=== PATIENT | female | born 1940 | race Two or more races ===

== ENCOUNTER 2024-10-27 11:40 | Inpatient (IN) | payer OTHER ==
[2024-10-27] MEDS: LACTATED RINGERS SOLUTION 1000 ML INFUS.BAG IV ONE (12:39)
[2024-10-27 12:43] LABS: ABSOLUTE IMMATURE GRANULOCYTES 0.01 x10^3/uL (0.0-0.031); BASOPHILS # 0.07 x10^3/uL (0.01-0.08); EOSINOPHIL % 1.7 % (0.7-5.8); EOSINOPHILS # 0.09 x10^3/uL (0.04-0.36); MCHC 32.7 g/dl (32.2-35.5); MEAN CELL VOLUME 93.7 fl (79.4-94.8); MEAN PLT VOLUME 10.6 fl (9.4-12.3); MONOCYTE # 0.47 x10^3/uL (0.24-0.86); MONOCYTE % 8.7 % (4.7-12.5); RDW 12.1 % (12.5-17.0)
[2024-10-27 13:21] LABS: GLUCOSE,RANDOM 88.0 mg/dL (74-106); TOT PROT 6.7 g/dl (6.4-8.2)
[2024-10-27 13:23] LABS: CO2 27.0 mmol/L (21-32)
[2024-10-27 13:24] LABS: ALK PHOS 84.0 U/L (40-150)
[2024-10-27 13:26] LABS: EPI CELLS 2 /uL (0-25.1); HYALINE CASTS 0 /uL (0-3.1); URINE APPEARANCE CLEAR; URINE BACTERIA 1871 /uL (0-1359); URINE BILIRUBIN NEGATIVE (NEGATIVE); URINE COLOR YELLOW; URINE GLUCOSE (UA) NEGATIVE (NEGATIVE); URINE KETONE NEGATIVE (NEGATIVE); URINE LEUK ESTERASE 1+ (NEGATIVE); URINE NITRITE POSITIVE (NEGATIVE); URINE PROTEIN NEGATIVE (NEGATIVE); URINE RBC 7 /uL (0-23.9); URINE UROBILINOGEN 0.2 mg/dL (0.2-1.0); URINE WBC 13 /uL (0-25.8)
[2024-10-27 13:27] LABS: CREATININE 0.75 mg/dL (0.55-1.3); SGOT/AST 24.0 U/L (5-34); SGPT/ALT 10.0 U/L (0-55)
[2024-10-27] MEDS ORDERED: CEFTRIAXONE 1 GM/50 ML BAG ONE (14:09)
[2024-10-27] MEDS ORDERED: HALOPERIDOL LACTATE 5 MG/ML ONE (15:45)
[2024-10-27] MEDS: MIDAZOLAM HCL 2 MG/2 ML SINGLE DOSE VIAL IVPUSH ONE (15:59)
[2024-10-27] MEDS: HALOPERIDOL LACTATE 5 MG/ML IM ONE (15:59)
[2024-10-28] MEDS: ACETAMINOPHEN 1000 MG/100 ML BAG IVPB PRN (05:27)
[2024-10-28] MEDS: LEVOTHYROXINE NA 25 MCG TABLET (FP) PO SCH (06:30)
[2024-10-28] MEDS: amLODIPine BESYLATE 10 MG TABLET (FP) PO SCH (09:26)
[2024-10-28] MEDS: FAMOTIDINE 20 MG TABLET PO SCH (09:26)
[2024-10-28] MEDS: ASPIRIN 81 MG CHEWABLE TABLETS PO SCH (09:26)
[2024-10-28] MEDS: ENOXAPARIN NA (PORCINE) 40 MG/0.4 ML DISP.SYRIN SQ SCH (09:26)
[2024-10-28] MEDS: CEFTRIAXONE 1 GM in DEXTROSE 5%-WATER - 50 ML IVPB SCH (09:26)
[2024-10-28 09:53] LABS: ABSOLUTE IMMATURE GRANULOCYTES 0.02 x10^3/uL (0.0-0.031); BASOPHILS # 0.08 x10^3/uL (0.01-0.08); EOSINOPHIL % 1.2 % (0.7-5.8); EOSINOPHILS # 0.08 x10^3/uL (0.04-0.36); MCHC 33.2 g/dl (32.2-35.5); MEAN CELL VOLUME 93.2 fl (79.4-94.8); MEAN PLT VOLUME 10.8 fl (9.4-12.3); MONOCYTE # 0.47 x10^3/uL (0.24-0.86); MONOCYTE % 7.3 % (4.7-12.5); RDW 12.3 % (12.5-17.0)
[2024-10-28 10:52] LABS: GLUCOSE,RANDOM 103.0 mg/dL (74-106); TOT PROT 7.6 g/dl (6.4-8.2)
[2024-10-28 10:53] LABS: CO2 27.0 mmol/L (21-32)
[2024-10-28 10:55] LABS: ALK PHOS 105.0 U/L (40-150)
[2024-10-28 10:57] LABS: SGOT/AST 25.0 U/L (5-34); SGPT/ALT 9.0 U/L (0-55)
[2024-10-28 10:58] LABS: CREATININE 0.85 mg/dL (0.55-1.3)
[2024-10-28 16:22] LABS: ERYTHROCYTE SEDIMENTATION RATE 34 mm/hr (0-30)
[2024-10-28] MEDS: TAMSULOSIN HCL 0.4 MG CAP PO SCH (18:57)
[2024-10-29 06:54] LABS: ABSOLUTE IMMATURE GRANULOCYTES 0.01 x10^3/uL (0.0-0.031); BASOPHILS # 0.08 x10^3/uL (0.01-0.08); EOSINOPHIL % 2.6 % (0.7-5.8); EOSINOPHILS # 0.13 x10^3/uL (0.04-0.36); MCHC 33.0 g/dl (32.2-35.5); MEAN CELL VOLUME 92.5 fl (79.4-94.8); MEAN PLT VOLUME 10.6 fl (9.4-12.3); MONOCYTE # 0.54 x10^3/uL (0.24-0.86); MONOCYTE % 10.8 % (4.7-12.5); RDW 12.0 % (12.5-17.0)
[2024-10-29 07:55] LABS: GLUCOSE,RANDOM 87.0 mg/dL (74-106); TOT PROT 6.4 g/dl (6.4-8.2)
[2024-10-29 07:57] LABS: CO2 28.0 mmol/L (21-32)
[2024-10-29 07:58] LABS: ALK PHOS 87.0 U/L (40-150)
[2024-10-29 08:01] LABS: CREATININE 0.96 mg/dL (0.55-1.3); SGOT/AST 27.0 U/L (5-34); SGPT/ALT 10.0 U/L (0-55)
[2024-10-29] MEDS ORDERED: ACETAMINOPHEN 1000 MG/100 ML BAG IVPB SCH (09:15)
[2024-10-29] MEDS ORDERED: ACETAMINOPHEN 325 MG TABLET (FP) PO SCH (12:00)
[2024-10-29 15:01] VITALS: BMI 22.9
[2024-10-29] MEDS: ACETAMINOPHEN 325 MG TABLET (FP) PO SCH (16:40)
[2024-10-30 06:54] VITALS: RESP 18
[2024-10-30 13:12] LABS: ABSOLUTE IMMATURE GRANULOCYTES 0.02 x10^3/uL (0.0-0.031); BASOPHILS # 0.07 x10^3/uL (0.01-0.08); EOSINOPHIL % 1.3 % (0.7-5.8); EOSINOPHILS # 0.09 x10^3/uL (0.04-0.36); MCHC 33.4 g/dl (32.2-35.5); MEAN CELL VOLUME 91.7 fl (79.4-94.8); MEAN PLT VOLUME 10.9 fl (9.4-12.3); MONOCYTE # 0.52 x10^3/uL (0.24-0.86); MONOCYTE % 7.6 % (4.7-12.5); RDW 11.9 % (12.5-17.0)
[2024-10-30] MEDS ORDERED: ONDANSETRON 4 MG/2 ML VIAL IVPUSH PRN (13:25)
[2024-10-30] MEDS: SODIUM CHLORIDE 1,000 ML IV SCH (13:30)
[2024-10-30 13:34] LABS: GLUCOSE,RANDOM 104.0 mg/dL (74-106); TOT PROT 6.8 g/dl (6.4-8.2)
[2024-10-30 13:35] LABS: CO2 27.0 mmol/L (21-32)
[2024-10-30 13:37] LABS: ALK PHOS 94.0 U/L (40-150)
[2024-10-30 13:39] LABS: CREATININE 0.89 mg/dL (0.55-1.3); SGOT/AST 44.0 U/L (5-34); SGPT/ALT 16.0 U/L (0-55)
[2024-10-31] MEDS: AMOX TR/POT CLAV 500MG/125MG TABLETS (FP) PO SCH (17:22)
[2024-11-01 07:02] VITALS: BP 134/67; PULSE 74; TEMP 97.9
[2024-11-01] MEDS: amLODIPine BESYLATE 5 MG TABLET (FP) PO SCH (09:13)
== END 2024-11-01 11:17 | DRG 392 ==
LOC: JER 11:40 → JERBED 19:25 → J8W 20:13
PROVIDERS: ADMIT Internal Medicine; ATTEND Internal Medicine
DX: K57.32 Diverticulitis of large intestine without perforation or abscess without bleeding (principal); F03.90 Unspecified dementia, unspecified severity, without behavioral disturbance, psychotic disturbance, mood disturbance, and anxiety; I10 Essential (primary) hypertension; E03.9 Hypothyroidism, unspecified; I25.10 Atherosclerotic heart disease of native coronary artery without angina pectoris; K21.9 Gastro-esophageal reflux disease without esophagitis; K59.00 Constipation, unspecified; I25.2 Old myocardial infarction; D64.9 Anemia, unspecified; R55 Syncope and collapse
CPT/HCPCS: 36415; 71045-TC-FY; 74177-TC; 80053; 81003; 82962; 83735; 84100; 84484; 85025; 85651; 86140; 87045; 87046; 87086; 93005; 93010; 99285-25; Q9967

== ENCOUNTER 2024-12-06 17:40 | Emergency (ER) | payer OTHER ==
[2024-12-06 17:55] VITALS: TEMP 97.8; BMI 21.4
[2024-12-06 18:43] LABS: ABSOLUTE IMMATURE GRANULOCYTES 0.01 x10^3/uL (0.0-0.031); BASOPHILS # 0.07 x10^3/uL (0.01-0.08); EOSINOPHIL % 2.7 % (0.7-5.8); EOSINOPHILS # 0.16 x10^3/uL (0.04-0.36); MCHC 32.0 g/dl (32.2-35.5); MEAN CELL VOLUME 91.7 fl (79.4-94.8); MEAN PLT VOLUME 11.0 fl (9.4-12.3); MONOCYTE # 0.52 x10^3/uL (0.24-0.86); MONOCYTE % 8.6 % (4.7-12.5); RDW 12.0 % (12.5-17.0)
[2024-12-06 19:00] LABS: INR 1.02 (0.83-1.09); PROTHROMBIN TIME (PATIENT) 11.1 SEC (9.7-13.0)
[2024-12-06 19:02] LABS: ACTIVATED PTT 29.0 SECONDS (25.2-36.5)
[2024-12-06 19:28] LABS: GLUCOSE,RANDOM 142.0 mg/dL (74-106)
[2024-12-06 19:29] LABS: TOT PROT 6.9 g/dl (6.4-8.2)
[2024-12-06 19:30] LABS: CO2 28.0 mmol/L (21-32)
[2024-12-06 19:31] LABS: ALK PHOS 103.0 U/L (40-150)
[2024-12-06 19:34] LABS: SGOT/AST 24.0 U/L (5-34); SGPT/ALT 11.0 U/L (0-55)
[2024-12-06 19:35] LABS: CREATININE 0.95 mg/dL (0.55-1.3)
[2024-12-06 19:42] LABS: N-TERMINAL BNP 465.5 pg/mL (0-299.9)
[2024-12-06 20:48] LABS: URINE APPEARANCE CLEAR; URINE BILIRUBIN NEGATIVE (NEGATIVE); URINE COLOR YELLOW; URINE GLUCOSE (UA) NEGATIVE (NEGATIVE); URINE KETONE NEGATIVE (NEGATIVE); URINE LEUK ESTERASE 1+ (NEGATIVE); URINE NITRITE NEGATIVE (NEGATIVE); URINE PROTEIN NEGATIVE (NEGATIVE); URINE UROBILINOGEN 0.2 mg/dL (0.2-1.0)
[2024-12-06 20:58] LABS: HCV DIAGNOSTIC IN-HOUSE W/RFLX NON-REACTIVE (NONREACTIVE)
[2024-12-06 20:59] LABS: HIV INTERPRETATION NEGATIVE (NEGATIVE)
[2024-12-06] MEDS ORDERED: CEPHALEXIN MONOHYDRATE 500 MG CAPSULE (UD) ONE (21:37)
[2024-12-06] MEDS: CEPHALEXIN MONOHYDRATE 500 MG CAPSULE (UD) PO ONE (21:41)
[2024-12-07 01:44] VITALS: BP 169/74; PULSE 74; RESP 16
== END 2024-12-07 01:47 ==
LOC: JER 17:40
PROC: 0T9B70Z Drainage of Bladder with Drainage Device, Via Natural or Artificial Opening (ICD-10-PCS; principal; 2024-12-06)
DX: R41.82 Altered mental status, unspecified (principal); N39.0 Urinary tract infection, site not specified; R55 Syncope and collapse; R53.83 Other fatigue; R10.9 Unspecified abdominal pain
CPT/HCPCS: 36415; 70450-TC; 71045-TC-FY; 80053; 81003; 82962; 83735; 83880; 84100; 84443; 84484; 85025; 85610; 85730; 86803; 86850; 86900; 86901; 87086; 87389; 87637-QW; 93005; 93010; 99285-25